=== PATIENT | male | born 1955 | race Caucasian/White ===

== ENCOUNTER 2019-07-12 08:32 | Emergency (ER) | payer BC ==
[~2019-07-12] VITALS: Ht 185.4 cm; Wt 88.0 kg
--- NOTE | 2019-07-12 10:31 | NUR ---
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 DANAE
[2019-07-12] MEDS ORDERED: LISI1TAB20 PO (10:49)
[2019-07-12] MEDS ORDERED: COLE625T12 PO (10:49)
[2019-07-12] MEDS ORDERED: OMEP-110 PO (10:49)
--- NOTE | 2019-07-12 10:58 | NUR ---
UA COLLECTED AND SENT TO THE LAB. PT C/O BILATERAL LOWER BACK PAIN SINCE TUESDAY AFTER LIFTING A BUNCH OF HEAVY ROCKS ON TUESDAY. PT THEN EXPERIENCED ABD PAIN SINCE TUESDAY WITH DIARRHEA ON TUESDAY. ABD PAIN CONTINUES BUT DIARRHEA ENDED ON TUESDAY. PT REPORTS NO APPETITE. 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
[2019-07-12 11:02] LABS: BASOPHILS # (AUTO) 0.02 x10^3/uL (0-0.1); BASOPHILS % (AUTO) 0 % (0-1); EOSINOPHILS % (AUTO) 0 % (1-7); LYMPHOCYTES # (AUTO) 1.31 x10^3/uL (1-3.4); LYMPHOCYTES % (AUTO) 21 % (22-44); MD NO; MEAN CORPUSCULAR HEMOGLOBIN 30.1 pg (27.5-34.5); MEAN CORPUSCULAR HGB CONC 33.2 g/dL (33.2-36.2); MEAN PLATELET VOLUME 7.7 fL (7.4-10.4); MONOCYTES # (AUTO) 0.78 x10^3/uL (0.2-0.8); MONOCYTES % (AUTO) 13 % (2-9); NEUTROPHILS # (AUTO) 4.05 x10^3/uL (1.8-6.8); NEUTROPHILS % (AUTO) 66 % (42-75); PLATELET COUNT 193 x10^3/uL (130-400); RED BLOOD COUNT 5.28 x10^6/uL (4.38-5.82); RED CELL DISTRIBUTION WIDTH 13.1 % (9.4-14.8)
[2019-07-12 11:06] LABS: MICROSCOPIC AUTO
[2019-07-12 11:08] LABS: ALANINE AMINOTRANSFERASE 69 U/L (12-78); ANION GAP 11 mmol/L (5-15); CALCIUM 9.2 mg/dL (8.5-10.1); CHLORIDE 95 mmol/L (98-107); CREATININE 1.29 mg/dL (0.7-1.3)
[2019-07-12 11:10] LABS: ALKALINE PHOSPHATASE 62 U/L (45-117); BILIRUBIN,TOTAL 0.6 mg/dL (0.2-1.0); TOTAL PROTEIN 8.7 g/dL (6.4-8.2)
--- NOTE | 2019-07-12 11:13 | NUR ---
CHART UP FOR MD RECHECK. PT AWARE.
--- NOTE | 2019-07-12 11:25 | NUR ---
PT TO CT.
--- NOTE | 2019-07-12 12:15 | NUR ---
DR. AZEVEDO AT BEDSIDE FOR RECHECK.
[2019-07-12 12:50] VITALS: BP 118/75
== END 2019-07-12 12:52 | disposition home or self-care (01) ==
LOC: ED 11:36
DX: S29.012A Strain of muscle and tendon of back wall of thorax, initial encounter (principal); R31.29 Other microscopic hematuria; R10.32 Left lower quadrant pain; R10.31 Right lower quadrant pain; R19.7 Diarrhea, unspecified; R11.0 Nausea; R94.31 Abnormal electrocardiogram [ECG] [EKG]; I10 Essential (primary) hypertension; X58.XXXA Exposure to other specified factors, initial encounter; Y93.89 Activity, other specified; Y92.89 Other specified places as the place of occurrence of the external cause; Y99.8 Other external cause status
CPT/HCPCS: 36415; 74176; 80053; 81001; 82550; 83690; 85025; 93005; 99285